=== PATIENT | male | born 1995 | race Caucasian/White ===

== ENCOUNTER 2018-10-25 12:26 | Emergency (ER) | payer BC, SELFPAY ==
[2018-10-25 12:38] VITALS: BP 146/104; PULSE 102; RESP 18; TEMP 36.3; O2SAT 97
--- NOTE | 2018-10-25 12:52 | DI.CT_ITS ---
SYMPTOMS/DIAGNOSIS: HEADACHE AND DIZZINESS X 4 WEEKS, ? MASS CRANIAL CT: A noncontrast enhanced examination was performed. There is no evidence of an intra/extra-axial hemorrhage, mass or fluid collection. The can-white matter differentiation is intact. The ventricles are normal. There is no evidence of a skull fracture. The paranasal sinuses are normal. There is no mastoid effusion. SUMMARY: No acute intracranial abnormality is seen. Normal noncontrast enhanced cranial CT.
[2018-10-25] MEDS: Meclizine 25 MG TAB PO (12:55)
--- NOTE | 2018-10-25 13:00 | ED.GENADUL_ITS ---
Discharge Plan Disposition Patient Disposition: HOME Condition: Good Discharge Details Chief Complaint: Headache Clinical Impression: Dizziness, Acute dehydration Primary Care Provider: Tristan Conner ED Provider: Bayron Merino Home Meds and New Rx's Prescriptions: New meclizine 25 mg tablet 25 mg PO TID 7 Days Qty: 21 RF: 0 Discharge Instructions Instructions: Dizziness (ED) Additional Instructions: Please drink 10-12 cups of water per day. Please take the meclizine as directed. Please follow-up closely with your primary care provider. If you notice any worsening of your symptoms, or any new symptoms such as vomiting, diarrhea, fever, chills, shortness of breath, chest pain, numbness, weakness, or fainting , please return immediately to the emergency department for reevaluation. Please follow up with your primary care provider as soon as possible for reassessment and reevaluation. As always, it was a pleasure participating in your medical care today. 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 He has associated dizziness whenever he stands, or when he moves his head quickly. He feels notably lightheaded when he stands up quickly. Physical exam demonstrates notably dry mucous membranes, but normal neurologic exam, he does have some mild horizontal nystagmus, as well as a positive head impulse test suggestive of a peripheral etiology for his dizziness. No signs of central etiology on exam. I feel the signs and symptoms are concerning for mild dehydration and mild peripheral vertigo, we will give meclizine and water for oral rehydration. Because of the chronicity of his headache and his lack of history of headaches we will get a CT scan to rule out mass as an unlikely cause of his symptoms. 1:[address] scan has returned, and per radiology there is no evidence of acute infarct, mass or tumor. No significant abnormalities. Patient has been given meclizine. With a continued normal neurologic exam, no concerning red flags to fever, chills, neck pain or neck stiffness, no concerning past medical history for significant intracranial etiology, chest pain, near syncope, palpitations, I feel he can be safely discharged home. Signs and symptoms at this time are clinically consistent with mild peripheral vertigo and mild dehydration. I did discuss with him neurology referral however he would like to follow-up with his primary care provider at [facility] at the time being. We discussed red flags which to return, notable importance of significant fluid at home to avoid dehydration. HPI General Date/Time Provider Initiated Documentation: 10/25/18 12:43 . HPI Narrative: This is a 23-year-old male with no past medical history who takes no medications who presents today for evaluation of 3 weeks of headache, that occurs in the morning and gets better throughout the day, as well as 3 days of mild dizziness, worse with movement of his head suddenly, with no associated tinnitus. He denies any neck pain, fever or chills. He denies any chest pain shortness of breath. His dizziness is worse when he still had, improved by standing up slowly or laying back down. He denies any recent falls or traumas. He denies any chest pain or shortness of breath or numbness tingling or weakness in any of his extremities. The patient denies any headache red flags of worst headache of life, thunderclap headache, neck pain, fever, chills, concerning family history of polycystic kidney disease, Marfan syndrome, Queenie-Danlos syndrome, abdominal aortic aneurysm, aortic dissection, or intracranial aneurysm. He denies any modifying factors. No other complaints at this time Related Data Home Medications Medication Instructions Recorded Confirmed meclizine 25 mg PO TID 7 Days #21 tab 10/25/18 Previous Rx's Medication Instructions Recorded meclizine 25 mg PO TID 7 Days #21 tab 10/25/18 Allergies Allergy/AdvReac Type Severity Reaction Status Date / Time No Known Allergies Allergy Unverified 10/25/18 12:40 General Stated Complaint: Headache BENITEZ: 3 Review of Systems Review of Systems All systems reviewed & are unremarkable except as noted in HPI and below PFSH Social History Smoking/Tobacco Use Status: Never Alcohol Intake: never Substance use type: does not use Do you feel safe at home: Yes Do you feel safe in your relationship?: Yes Exam Narrative Exam Narrative: 1.Const: Well-nourished, Well-developed, appearing stated age 2.Eyes: PERRL, no conjunctival injection, and symmetrical lids. 3.ENT: Atraumatic external nose and ears. Moist MM. Neck: Symmetric, trachea midline, No thyromegaly. Patient demonstrates good movement of cervical neck. There is no nuchal rigidity, no nuchal tenderness. Patient is able to flex the neck without any difficulty or significant pain. Negative Kernig's and Brudzinski sign. 4.CVS: +S1/S2, No murmurs or gallops. Peripheral pulses 2+ and equal in all extremities. Brisk capillary refill in all extremities. 5.RESP: Unlabored respiratory effort. Clear to auscultation bilaterally. No wheezes rales or rhonchi 6.GI: Soft, Nontender/Nondistended, No hepatosplenomegaly. No guarding or rebound. 7.MSK: Normocephalic/Atraumatic, Extremities w/o deformity or ttp No cyanosis or clubbing, Normal movement of all extremities 8.Skin: Warm, Dry. No rashes or lesions. 9.Neuro: maintenance analyst II-XII grossly intact. Sensation grossly intact, no focal neurologic deficits. All 6 cardinal planes of vision are fully intact. No evidence of rotatory or vertical nystagmus. The patient demonstrated a normal [id number]-zkckgq, good dexterity. There was no evidence of dysdiadochokinesia. Patient was able to ambulate without difficulty. There was no wide-based gait. Romberg, and koyv-yf-hrot are both normal on testing. Sensation was intact bilaterally as well as muscle strength bilaterally for all extremities. Patient was able to verbalize butter cup with no slurring, or miss pronunciation. Cerebellar function testing is normal. The patient demonstrates a normal hints exam with no findings concerning for a central event. No vertical nystagmus, but he does have evidence of horizontal nystagmus.. The head impulse test is negative for any significant central abnormality but does worsen his symptomatology suggestive of a peripheral leading. Normal test of skew. No suggestion of a central cerebellar event. 10.Psych: (AAO) x3. Appropriate mood and affect Course Vital Signs Temperature 36.3 C L 10/25/18 12:38 Pulse 102 H 10/25/18 12:38 Respiratory Rate 18 10/25/18 12:38 Blood Pressure 146/104 H 10/25/18 12:38 Pulse Oximetry 97 10/25/18 12:38 Temperature 36.3 C L 10/25/18 12:38 Temperature Source Temporal Artery Scan 10/25/18 12:38 Pulse 102 H 10/25/18 12:38 Respiratory Rate 18 10/25/18 12:38 Respiratory Effort Non-Labored 10/25/18 12:41 Blood Pressure 146/104 H 10/25/18 12:38 Blood Pressure Position Sitting 10/25/18 12:38 Pulse Oximetry 97 10/25/18 12:38 Oxygen Delivery Method Room Air 10/25/18 12:38 Oxygen Flow Rate 0 10/25/18 12:38 Pain Level 0 10/25/18 12:41
== END 2018-10-25 14:04 | disposition home or self-care (01) ==
PROVIDERS: Emergency Provider Student in an Organized Health Care Education/Training Program; PCP General Practice
DX: R51 Headache (principal); R42 Dizziness and giddiness; E86.0 Dehydration
CPT/HCPCS: 99284; 70450

== ENCOUNTER 2018-12-11 09:27 | Outpatient (CLI) | payer BC, SELFPAY ==
[2018-12-11 12:14] LABS: ALT 30 U/L (12-78); AST 16 U/L (15-37); Cholesterol 201 mg/dL (50-200); HDL Cholesterol 42 mg/dL (40-60); LDL CHOLESTEROL 136 mg/dL (<100); Triglyceride 78 mg/dL (30-150)
== END 2018-12-11 09:47 ==
PROVIDERS: PCP Nurse Practitioner Family; Visit Provider Nurse Practitioner Family
DX: Z00.00 Encounter for general adult medical examination without abnormal findings (principal); Z13.220 Encounter for screening for lipoid disorders
CPT/HCPCS: 36415; 80061; 83721; 84450; 84460

== ENCOUNTER 2020-04-09 14:31 | Outpatient (REF) | payer BC, SELFPAY ==
[2020-04-11 15:43] LABS: Patient Race White; SARS-CoV-2 RNA Undetected (Undetected); SARS-CoV-2 Specimen Source Nasal
== END 2020-04-09 14:51 ==
LOC: NCHCN 14:31
PROVIDERS: PCP Nurse Practitioner Family; Visit Provider Physician Assistant
DX: J06.9 Acute upper respiratory infection, unspecified (principal)
CPT/HCPCS: U0003

== ENCOUNTER 2020-05-01 11:48 | Outpatient (REF) | payer OTHER, BC, SELFPAY ==
[2020-05-01 21:35] LABS: ALT 34 U/L (16-63); AST 20 U/L (15-37)
[2020-05-05 09:53] LABS: HBs Antibody, Quant 5.8 mIU/mL (See Note); Hepatitis B Surface Ab Negative (See Note)
[2020-05-05 10:00] LABS: Hepatitis B Surface Ag Negative (Negative)
[2020-05-05 10:37] LABS: Hepatitis C Ab w Rflx HCV PCR Negative (Negative)
[2020-05-05 11:14] LABS: HIV-1/2 Ag & Ab Screen Negative (Negative)
== END 2020-05-01 12:08 ==
LOC: NCHCN 11:48
PROVIDERS: PCP Nurse Practitioner Family; Visit Provider Nurse Practitioner Family
DX: Z20.9 Contact with and (suspected) exposure to unspecified communicable disease (principal); Z11.59 Encounter for screening for other viral diseases; Z11.4 Encounter for screening for human immunodeficiency virus [HIV]
CPT/HCPCS: 86706; 86803; 87340; 87389; 84450; 84460

== ENCOUNTER 2020-06-11 00:21 | Outpatient (CLI) | payer BC, SELFPAY ==
[2020-06-13 19:16] LABS: Patient Race White; SARS-CoV-2 RNA Undetected (Undetected); SARS-CoV-2 Specimen Source Nasal
== END 2020-06-11 00:41 ==
LOC: LBO 07:29 → NCHCO 07:44
PROVIDERS: PCP Nurse Practitioner Family; Visit Provider Nurse Practitioner Family
DX: Z20.828 Contact with and (suspected) exposure to other viral communicable diseases (principal)
CPT/HCPCS: U0003

== ENCOUNTER 2020-09-17 16:28 | Outpatient (REF) | payer OTHER, BC, SELFPAY ==
[2020-09-18 09:44] LABS: HBs Antibody, Quant 145.2 mIU/mL (See Note); Hepatitis B Surface Ab Positive (See Note)
[2020-09-18 09:53] LABS: Hepatitis B Surface Ag Negative (Negative)
[2020-09-18 10:08] LABS: HIV-1/2 Ag & Ab Screen Negative (Negative)
[2020-09-18 10:16] LABS: Hepatitis C Ab w Rflx HCV PCR Negative (Negative)
== END 2020-09-17 16:29 | disposition home or self-care (01) ==
LOC: NCHCN 16:28
PROVIDERS: PCP Nurse Practitioner Family; Visit Provider Nurse Practitioner Family
DX: Z20.9 Contact with and (suspected) exposure to unspecified communicable disease (principal); Z11.59 Encounter for screening for other viral diseases; Z11.4 Encounter for screening for human immunodeficiency virus [HIV]
CPT/HCPCS: 86706; 86803; 87340; 87389

== ENCOUNTER 2020-10-15 21:45 | Outpatient (REF) | payer OTHER, BC, SELFPAY ==
[2020-10-17 11:54] LABS: HSV Type 1 Ab, IgG Negative (Negative); HSV Type 2 Ab, IgG Negative (Negative)
== END 2020-10-15 21:46 | disposition home or self-care (01) ==
LOC: NCHCN 21:45
PROVIDERS: PCP Nurse Practitioner Family; Visit Provider Family Medicine
DX: B00.89 Other herpesviral infection (principal)
CPT/HCPCS: 86695; 86696

== ENCOUNTER 2021-03-16 16:23 | Outpatient (REF) | payer BC, SELFPAY ==
[2021-03-18 16:20] LABS: COVID-19 RT-PCR UVMMC Result Negative (Negative)
== END 2021-03-16 16:24 | disposition home or self-care (01) ==
LOC: NCHCN 16:23
PROVIDERS: PCP Nurse Practitioner Family; Visit Provider Nurse Practitioner Family
DX: Z20.822 Contact with and (suspected) exposure to COVID-19 (principal)
CPT/HCPCS: U0003

== ENCOUNTER 2021-03-26 15:54 | Outpatient (REF) | payer BC, SELFPAY ==
[2021-03-26 14:02] LABS: Abs Immature Grans 0.12 10^3/uL (0.0-0.06); Absolute Eosinophil Count 0.39 10^3/uL (0.0-0.7); Absolute Lymphocyte Count 2.39 10^3/uL (1.2-3.4); Absolute Monocyte Count 0.68 10^3/uL (0.1-0.8); Basophils % 0.7; ESR 32 mm/hr (0-15); Eosinophils % 3.2; HGB 15.1 g/dL (13.5-17.5); Lymphocytes % 19.7; MCHC 31.5 % (32.0-36.0); MCV 89.1 fL (80-95); MPV 9.6 fL (8.0-11.0); Monocytes % 5.6; Neutrophils % 69.8; Nucleated RBC 0 %; Platelet Count 450 10^3/uL (130-400); RBC 5.39 10^6/uL (4.36-5.78); RDW 13.1 % (11.8-14.1); RDW-SD 42.5 fL; WBC 12.12 10^3/uL (4.4-10.8)
[2021-03-26 14:07] LABS: Absolute Basophil Count 0.08 10^3/uL (0.0-0.2); Absolute Neutrophil Count 8.46 10^3/uL (1.2-6.7)
[2021-03-26 14:08] LABS: C-Reactive Protein 7.26 mg/dL (0.0-0.3)
== END 2021-03-26 15:55 | disposition home or self-care (01) ==
LOC: NCHCN 15:54
PROVIDERS: PCP Nurse Practitioner Family; Visit Provider Nurse Practitioner Family
DX: L03.116 Cellulitis of left lower limb (principal)
CPT/HCPCS: 85652; 85025; 86140

== ENCOUNTER 2021-04-07 12:55 | Outpatient (REF) | payer BC, SELFPAY ==
[2021-04-07 21:45] LABS: Anion Gap 9.2 mmol/L (3-11); BUN 13 mg/dL (7-18); CO2 28.8 mmol/L (21.0-32.0); Calcium 9.2 mg/dL (8.5-10.1); Chloride 105 mmol/L (98-107); Glucose 84 mg/dL (74-106); Potassium 4.8 mmol/L (3.5-5.1); Sodium 143 mmol/L (136-145)
== END 2021-04-07 12:56 | disposition home or self-care (01) ==
LOC: NCHCN 12:55
PROVIDERS: PCP Nurse Practitioner Family; Referring Provider Nurse Practitioner Family; Visit Provider Nurse Practitioner Family
DX: Z51.81 Encounter for therapeutic drug level monitoring (principal)
CPT/HCPCS: 80048

== ENCOUNTER 2021-04-29 16:58 | Outpatient (REF) | payer BC, SELFPAY ==
[2021-04-29 20:10] LABS: BUN 12 mg/dL (7-18); Calcium 8.9 mg/dL (8.5-10.1); Chloride 104 mmol/L (98-107); Glucose 79 mg/dL (74-106); Potassium 4.3 mmol/L (3.5-5.1); Sodium 141 mmol/L (136-145)
== END 2021-04-29 16:59 | disposition home or self-care (01) ==
LOC: NCHCN 16:58
PROVIDERS: PCP Nurse Practitioner Family; Visit Provider Nurse Practitioner Family
DX: E66.8 Other obesity (principal)
CPT/HCPCS: 80048

== ENCOUNTER 2021-05-08 00:53 | Outpatient (CLI) | payer BC, SELFPAY ==
[2021-05-08 08:24] VITALS: BP 142/84; RESP 20; TEMP 36.7; O2SAT 97
[2021-05-08 09:25] VITALS: BP 117/81; PULSE 87; RESP 20; TEMP 36.9; O2SAT 96
[2021-05-08] MEDS: Normal Saline 500 ML 30 ML IV (09:35)
[2021-05-08 09:45] VITALS: PULSE 94; TEMP 36.9
[2021-05-08 10:15] VITALS: BP 136/86; PULSE 89; RESP 20; TEMP 36.3; O2SAT 97
[2021-05-08 10:45] VITALS: BP 130/84; PULSE 86; RESP 20; TEMP 36.6; O2SAT 98
== END 2021-05-08 00:54 | disposition home or self-care (01) ==
PROVIDERS: PCP Nurse Practitioner Family; Visit Provider Family Medicine
DX: U07.1 COVID-19 (principal)
CPT/HCPCS: 96365

== ENCOUNTER 2021-06-03 17:47 | Outpatient (REF) | payer BC, SELFPAY ==
[2021-06-03 21:29] LABS: HCT 47.7 % (40.0-50.0); HGB 15.4 g/dL (13.5-17.5); MCH 28.4 pg (27.0-33.0); MCHC 32.3 % (32.0-36.0); MPV 10.2 fL (8.0-11.0); Platelet Count 381 10^3/uL (130-400); RBC 5.42 10^6/uL (4.36-5.78); RDW 13.2 % (11.8-14.1); RDW-SD 42.2 fL
[2021-06-04 07:13] LABS: NT-proBNP 42 pg/mL (<300)
== END 2021-06-03 17:48 | disposition home or self-care (01) ==
LOC: NCHCN 17:47
PROVIDERS: PCP Nurse Practitioner Family; Visit Provider Nurse Practitioner Family
DX: I87.8 Other specified disorders of veins (principal)
CPT/HCPCS: 85027; 83880

== ENCOUNTER 2021-06-29 01:01 | Outpatient (CLI) | payer BC, SELFPAY ==
[2021-06-29] MEDS: Breeza Beverage 473 ML BTL PO (13:30)
[2021-06-29] MEDS: Omnipaque 350 MG/ML 50 ML BTL PO (13:30)
--- NOTE | 2021-06-29 14:30 | DI.CT_ITS ---
Exam(s) CT ABDOMEN PELVIS W EXAM: CT ABDOMEN PELVIS W CLINICAL HISTORY: RESPIRATORY CRACKLES R09.89 BILAT LEG EDEMA R60.0 WEIGHT GAIN R63.5. TECHNIQUE: Imaging Protocol: Axial computed tomography images with coronal and sagittal reformatted images were created and reviewed CONTRAST MATERIAL: Intravenous: Omnipaque 100cc Oral: Yes COMPARISON: CT UPPER ABD WITH CONTRAST (P) from 01/10/2012 FINDINGS: VISUALIZED LUNG BASES: No nodules nor pleural effusions evident. ABDOMEN: There is no ascites. LIVER: There are no focal hepatic lesions evident . GALLBLADDER/BILIARY: No obvious gallbladder pathology. CBD is not dilated. PANCREAS: No evidence of pancreatic mass nor dilatation of the pancreatic duct. SPLEEN: Spleen is not enlarged. No obvious intrasplenic lesions. Splenic and portal veins are paten t. ADRENALS: There are no significant adrenal masses. KIDNEYS:Small 8 millimeters cyst in the right kidney. No other significant focal renal findings alth ough there is slight prominence of the right renal pelvis noted but no prominence of the ureter. No solid renal masses. No calculi nor hydronephrosis.. ABDOMINAL AORTA: Abdominal aorta is not enlarged. LYMPH NODES:No prominent clveozdyqjfqmzu-lkea-ivhdbz adenopathy. However, there are slightly enlarge d mesenteric lymph nodes noted, largest of these measuring 1.8 by 1.2 cm, located right of center. ABDOMINAL WALL: No evidence of significant anterior abdominal wall nor inguinal hernia. GI: There is no evidence of bowel obstruction, free air, nor abscess. PELVIS: GI: No evidence of appendicitis.No evidence of sigmoid diverticulitis. LYMPH NODES: There is no intrapelvic nor inguinal adenopathy. REPRODUCTIVE: Prostate gland is not enlarged. Seminal vesicles unremarkable. URINARY BLADDER: No calculi nor obvious masses evident OSSEOUS: No significant osseous lesions. IMPRESSION: 1. Compared to prior CT scan of December 2011 there is now a small 8 millimeter cyst in the posterior cor tae of the right kidney. No other significant renal findings. No hydronephrosis. 2. There are slightly enlarged mesenteric lymph nodes, largest of these measuring 1.8 x 1.2 cm, locat ed right of center. So slightly smaller but slightly prominent lymph nodes in the right lower quadra nt. No evidence of appendicitis. No diverticulitis. Small para-aortic lymph nodes noted. No splen omegaly. 3. Other findings as above 4. RADIATION DOSE DELIVERED: 3,343.26mGy.cm Total DLP DATA REPOSITORY: All CT scans at this facility are submitted to the National Radiology Data Registry (NRDR) Dose Index Registry (DIR) with the [employer] (ACR). RADIATION OPTIMIZATION: All CT scans at this facility use at least one of these dose optimization te chniques: automated exposure control; mA and/or kV adjustment per patient size (includes targeted exa ms where dose is matched to clinical indication); or iterative reconstruction.
[2021-06-29] MEDS: Omnipaque 350 MG/ML 100 ML BTL IJ (14:36)
== END 2021-06-29 01:21 ==
PROVIDERS: PCP Nurse Practitioner Family; Visit Provider Nurse Practitioner Family
DX: R09.89 Other specified symptoms and signs involving the circulatory and respiratory systems (principal); R60.0 Localized edema; R63.5 Abnormal weight gain; N28.1 Cyst of kidney, acquired; R59.0 Localized enlarged lymph nodes
CPT/HCPCS: 74177; J3490; Q9967

== ENCOUNTER 2021-07-08 00:08 | Outpatient (CLI) | payer BC, SELFPAY ==
--- NOTE | 2021-07-08 07:30 | DI.US_ITS ---
APPROVED REPORT EXAM: Comprehensive 2D, Doppler, and color-flow Echocardiogram Patient Location: Out-Patient Air Support Control Officer: Jossy Klein RDCS (AE) Indications: Weight gain, respiratory crackles Other Information Study Quality: Fair. Technically limited study due to body habitus. Conclusion Technically difficult and suboptimal study Left ventricle is normal in size, normal wall thickness, normal systolic function, EF 60% The right ventricle appears normal in size and systolic function Both atria are normal in size There are no structural or hemodynamically significant valvular abnormalities identified Wall motion Left Ventricle The left ventricle is normal size. The left ventricular systolic function is normal. The left ventric ular ejection fraction is within the normal range. There is normal left ventricular wall thickness. T here is normal LV segmental wall motion. There is no ventricular septal defect visualized. LVEF is 59 %. Right Ventricle Right ventricle is grossly normal in size. Right ventricular systolic function is grossly normal. Atria The left atrium size is normal. The right atrium size is normal. The interatrial septum is intact wit h no evidence for an atrial septal defect. Aortic Valve The aortic valve is normal in structure. Number of aortic valve leaflets could not be assessed. There is no aortic valvular stenosis. No aortic regurgitation is present. Mitral Valve The mitral valve is normal in structure. No evidence of mitral valve stenosis. Trace mitral regurgita tion. Tricuspid Valve The tricuspid valve is normal in structure. There is no tricuspid valve stenosis. Trace tricuspid reg urgitation. Unable to assess PA pressure. Pulmonic Valve Pulmonic valve is not well visualized. There is no pulmonic valvular stenosis. There is no pulmonic v alvular regurgitation. Great Vessels The aortic root is normal in size. The ascending aorta is normal in size. Aortic arch is not well vis ualized. IVC is normal in size and collapses >50% with inspiration. Pericardium There is no pericardial effusion. 2D Dimensions IVSD d PLAX 0.92 cm M: 0.6-1.2 LV Vol A2C d MOD 128.0 mL LVPW d PLAX 0.98 cm M: 0.6 - 1.2 LV Vol A4C d MOD 160.1 mL LVID d PLAX 5.06 cm M: 4.2 - 5.8 LA vol/ BSA A2C s A-L 18.1 mL/m2 LVDs 3.40 cm M: 2.5 - 4.0 LA vol/ BSA A4C s A-L 19.2 mL/m2 Ao Root d 3.06 cm M: 3.1 - 3.7 LA Vol/ BSA Biplane s A-L 20.3 mL/m2 RA Area A4C 13.78 cm2 LA Area A4C s MOD 19.07 cm2 RA Vol/ BSA A4C s A-L 12.4 mL/m2 LA Area A2C s MOD 17.01 cm2 Ao Asc Diam d 3.23 cm M: 2.6 - 3.4 LV EF A4C MOD 59.3 % LV EF Teichholz 59.9 % LV EF A2C MOD 59.4 % LVEF (Roberson's) 58.75 % M: 52 - 72 LV EF Biplane MOD 58.7 % LV Volume 97.36 mL M: 62 - 150 SV 84.07 mL LV Volume Index 35.14 mL/m2 M: 34 - 74 SV Index 30.31 mL/m2 LV Vol Biplane MOD 143.1 mL FS 32.00 % M-Mode TAPSE 2.31 cm (M/F) >1.7 LV Diastology MV E' medial 0.118 (>0.07 m/s) E/A Ratio 1.4 LV E/e MED 7.05 (<14) MV E Vmax 0.84 (0.4-1.3 m/s) MV E' lateral 0.154 (>0.1 m/s) MV A Vmax 0.60 (0.4-1.3 m/s) LV E/e LAT 5.40 (<14) MV E/A Ratio 1.33 MV E/E' medial 7.06 MV E/E' lateral 5.44 Aortic Valve LVOT Area 3.80 cm2 AoV Area Vmax 2.83 cm2 LVOT Vmax 1.04 m/s AoV Area/ BSA (Vmax) 1.02 cm2/m2 LVOT Mean Thompson. 0.65 m/s ABDELRAHMAN Mean Thompson. 2.52 cm2 LVOT Peak Grad 4.3 mmHg ABDELRAHMAN Mean Thompson. Index 0.91 cm2/m2 LVOT Mean Grad 2.1 mmHg LVOT VTI 0.209 m LVOT Diam s 2.15 cm AoV Vmax 1.39 m/s Velocity Ratio 0.74 AoV Mean Thompson. 0.98 m/s AoV Peak Grad 7.7 mmHg LVOT SV 79.21 mL AoV Mean Grad 4.2 mmHg AoV VTI 0.259 m AoV Area VTI 3.06 cm2 AoV Area/ BSA (VTI) 1.10 cm/m2 Mitral Valve MV DT 178 (160-240 msec) MV PHT 52 msec MV Area PHT 4.26 cm2 MV VTI 0.249 m MV Area VTI 3.18 (4.0-6.0 cm2) Pulmonary Valve PV Vmax 0.92 (0.5-1.5 m/s) RVOT Peak Gr. 1.75 mmHg PV Peak Grad 3.4 mmHg RVOT Mean Gr. 0.90 mmHg PV Mean Grad 2.1 mmHg RVOT VTI 0.140 m PV VTI 0.207 m RVOT Vmax 0.66 m/s
== END 2021-07-08 00:28 ==
PROVIDERS: PCP Nurse Practitioner Family; Visit Provider Nurse Practitioner Family
DX: R63.5 Abnormal weight gain (principal); R09.89 Other specified symptoms and signs involving the circulatory and respiratory systems
CPT/HCPCS: 93306

== ENCOUNTER 2022-04-01 12:33 | Outpatient (REF) | payer BC, SELFPAY ==
[2022-04-02 16:22] LABS: Appearance Normal; Container Type 50 mL Conical; Grade 2.5 (>=2.5); Motile/Ejaculate 79.5 x10(6) (>=9.0); Motile/mL 31.8 x10(6) (>=6.0); Motility 55 % (>=40); Semen Volume 2.5 mL (>=1.5); Sperm/mL 57.8 x10(6) (>=15.0); Study Type Semen; pH 7.5 (>=7.2)
[2022-04-05 12:39] LABS: Head Shape Abnormal 30.5 %; Midpiece Defect 5.5 %; WBC/mL 4.62 x10(6) (<1.00)
== END 2022-04-01 12:34 | disposition home or self-care (01) ==
LOC: LBN 12:33
PROVIDERS: PCP Nurse Practitioner Family; Visit Provider Nurse Practitioner Family
DX: Z30.09 Encounter for other general counseling and advice on contraception (principal)
CPT/HCPCS: 89240; 89310

== ENCOUNTER 2023-10-14 13:40 | Outpatient (CLI) | payer BC, SELFPAY ==
[2023-10-14 11:06] LABS: Abs Immature Grans 0.03 10^3/uL (0.0-0.06); Absolute Basophil Count 0.05 10^3/uL (0.0-0.2); Absolute Eosinophil Count 0.28 10^3/uL (0.0-0.7); Absolute Lymphocyte Count 2.62 10^3/uL (1.2-3.4); Absolute Monocyte Count 0.67 10^3/uL (0.1-0.8); Absolute Neutrophil Count 6.26 10^3/uL (1.2-6.7); Basophils % 0.5; Eosinophils % 2.8; HCT 49.6 % (40.0-50.0); HGB 16.5 g/dL (13.5-17.5); Immature Grans % 0.3; Lymphocytes % 26.4; MCH 28.7 pg (27.0-33.0); MCHC 33.3 % (32.0-36.0); MCV 86 fL (80-95); MPV 9.2 fL (8.0-11.0); Monocytes % 6.8; Neutrophils % 63.2; Platelet Count 356 10^3/uL (130-400); RBC 5.74 10^6/uL (4.36-5.78); RDW 13.2 % (11.8-14.1); RDW-SD 41.4 fL; WBC 9.91 10^3/uL (4.4-10.8)
[2023-10-14 11:19] LABS: Anion Gap 4.6 mmol/L (3-11); BUN 12 mg/dL (7-18); CO2 33.4 mmol/L (21.0-32.0); CREATININE 0.9 mg/dL (0.70-1.30); Calcium 9.1 mg/dL (8.5-10.1); Chloride 104 mmol/L (98-107); Estimated GFR 117.83 (mL/min/1.73m2); Glucose 92 mg/dL (74-106); Potassium 4.1 mmol/L (3.5-5.1); Sodium 142 mmol/L (136-145)
== END 2023-10-14 13:41 | disposition home or self-care (01) ==
LOC: LBO 13:41
PROVIDERS: PCP Nurse Practitioner Family; Visit Provider Physician Assistant Medical
DX: M79.662 Pain in left lower leg (principal)
CPT/HCPCS: 36415; 80048; 85025

== ENCOUNTER 2023-11-03 09:55 | Outpatient (REF) | payer BC, SELFPAY ==
[2023-11-03 15:50] LABS: Hemoglobin A1C 5.7 % (<5.7)
[2023-11-03 16:38] LABS: Calculated LDL 139 mg/dL (<100); Cholesterol 211 mg/dL (<200); HDL Cholesterol 49 mg/dL (40-60); Triglyceride 115 mg/dL (<150)
== END 2023-11-03 09:56 | disposition home or self-care (01) ==
LOC: NCHCN 09:55
PROVIDERS: PCP Nurse Practitioner Family; Visit Provider Nurse Practitioner Family
DX: E66.9 Obesity, unspecified (principal)
CPT/HCPCS: 80061; 83036

== ENCOUNTER 2024-08-28 00:15 | Outpatient (CLI) | payer BC, SELFPAY ==
--- NOTE | 2024-08-28 | DI.MRI_ITS ---
Exam(s) MR ABDOMEN WO/W EXAM: MR ABDOMEN WO/W CLINICAL HISTORY: Strong h/o pancreatic ca, mother and multiple relatives, Z80.0-family h/o TECHNIQUE: Multiplanar multisequence MRI of the Abdomen was performed. MRCP sequences also perform ed. CONTRAST MATERIAL: IV Contrast: 20 mL of Dotarem contrast administered. COMPARISON: CT CT ABDOMEN PELVIS W from 06/29/2021 FINDINGS: Exam is limited by patient body habitus and respiratory motion. Lung bases: Unremarkable. Liver: Unremarkable. Pancreas: Unremarkable. Gallbladder and Bile Ducts: Unremarkable. Adrenals: Unremarkable. Kidneys: Stable right renal cysts. No follow-up recommended. Spleen: Unremarkable. Aorta: Unremarkable. Soft Tissues: Unremarkable. Bone: Unremarkable. Lymph Nodes: Unremarkable. Stomach and bowel: Unremarkable. Peritoneal cavity: Unremarkable. No evidence of ascites. IMPRESSION: No evidence of pancreatic mass. DATA REPOSITORY:
[2024-08-28] MEDS: Normal Saline - Diluent 50 ML VIAL 25 ML IJ (08:07)
[2024-08-28] MEDS: Gadoterate meglumine 20 ML VIAL IVP (08:07)
== END 2024-08-28 00:35 ==
LOC: DI 00:15
PROVIDERS: PCP Nurse Practitioner Family; Visit Provider Nurse Practitioner Family
DX: Z13.818 Encounter for screening for other digestive system disorders (principal); Z80.0 Family history of malignant neoplasm of digestive organs
CPT/HCPCS: 74183

== ENCOUNTER 2025-06-04 15:43 | Outpatient (REF) | payer BC, SELFPAY ==
[2025-06-04 21:21] LABS: HCT 50.4 % (40.0-50.0); HGB 16.7 g/dL (13.5-17.5); MCH 28.3 pg (27.0-33.0); MCHC 33.1 % (32.0-36.0); MCV 85 fL (80-95); MPV 9.5 fL (8.0-11.0); Platelet Count 372 10^3/uL (130-400); RBC 5.90 10^6/uL (4.36-5.78); RDW 12.9 % (11.8-14.1); RDW-SD 40.0 fL; WBC 11.68 10^3/uL (4.4-10.8)
[2025-06-04 21:40] LABS: ALT 33 U/L (10-49); AST 25 U/L (<34); Albumin 4.6 g/dL (3.4-5.0); Alkaline Phosphatase 79 U/L (46-116); Anion Gap 5 mmol/L (3-11); BUN 17 mg/dL (9-23); Bilirubin, Total 0.50 mg/dL (0.2-1.2); CO2 29.0 mmol/L (20.0-31.0); Calcium 9.4 mg/dL (8.3-10.6); Chloride 107 mmol/L (98-107); Cholesterol 197 mg/dL (<200); Glucose 79 mg/dL (74-106); HDL Cholesterol 50 mg/dL (>40); Potassium 4.3 mmol/L (3.5-5.1); Sodium 141 mmol/L (136-145); Total Protein 7.8 g/dL (5.7-8.2)
[2025-06-04 22:52] LABS: Hemoglobin A1C 5.1 % (<5.7)
== END 2025-06-04 15:44 | disposition home or self-care (01) ==
LOC: NCHCN 15:43
PROVIDERS: PCP Nurse Practitioner Family; Visit Provider Nurse Practitioner Family
DX: Z00.00 Encounter for general adult medical examination without abnormal findings (principal); E66.9 Obesity, unspecified
CPT/HCPCS: 80053; 80061; 85027; 83036